=== PATIENT | female | born 1950 | race Caucasian/White ===

== ENCOUNTER 2020-10-28 04:26 | Emergency (ER) | payer MEDICARE, SELFPAY ==
--- NOTE | ~2020-10-28 | CT_ITS ---
EXAMINATION: CT brain wo con DATE: 10/28/2020 06:04 INDICATION: Headache TECHNIQUE: Computed tomography (CT) of the head was performed without intravenous contrast. The mA wa s adjusted according to patient size. Iterative reconstruction technique was employed. Exam dose: 60 5.33 mGy-cm total exam DLP. COMPARISON: None FINDINGS: Bilateral carotid siphon internal carotid artery calcifications and calcification of the do minant left vertebral artery. There is nonspecific diminished attenuation of the cerebral white matte r, likely due to chronic small vessel ischemic changes. No intracranial mass lesion or hemorrhage or cerebrovascular accident is evident. No midline shift or mass effect. No subdural or epidural hematoma. No fracture or bone destruction of the cranial vault. Included mastoid air cells and paranasal sinuses are normally developed and aerated. IMPRESSION: Cerebral atherosclerosis and chronic small vessel ischemic changes of the cerebral white matter No acute intracranial finding Reviewed, dictated and finalized at [facility]. Reviewed, dictated and finalized at location A. LEAD DEVELOPER
--- NOTE | ~2020-10-28 | XR_ITS ---
XR chest 1V DATE: 10/28/2020 06:07 INDICATION: Cough TECHNIQUE: AP chest on 10/28/2020 at 0603 hours COMPARISON: 08/01/2004 AP chest FINDINGS: Cardiomegaly. Aortic tortuosity and ectasia. There is right lung volume loss and rightward shift of the heart mediastinum. There is patchy infiltrate in the right mid to upper lung and infiltrate or atelectasis in both lung bases. No pleural effusion or pulmonary vascular congestion or pneumothorax. Mild left apical capping. Prominent thoracic and lumbar scoliosis. Diffuse osteopenia. IMPRESSION: Patchy right mid-upper lung infiltrate and bibasilar mild infiltrate or atelectasis Cardiomegaly Reviewed, dictated and finalized at location A. K TOP RAKER IMPRESSION: Patchy right mid-upper lung infiltrate and bibasilar mild infiltrat e or atelectasis Cardiomegaly
[2020-10-28 04:56] VITALS: BP 116/97; PULSE 93; RESP 28; TEMP 36.4; O2SAT 91
[2020-10-28 05:03] VITALS: BP 135/82; PULSE 81; PULSE 92; RESP 23; O2SAT 91
[2020-10-28 05:52] LABS: Basophils Percent Auto 0.6 % (0.2-1.2); Eosinophils Absolute Auto 0.1 K/mm3 (0-0.3); Eosinophils Percent Auto 1.5 % (0-4.4); Hematocrit 38.4 % (37.0-47.0); Hemoglobin 12.5 g/dL (12.0-15.0); Immature Granulocyte Percent A 1.5 % (0-0.5); Lymphocytes Percent Auto 13.5 % (18.3-44.2); Mean Corpuscular HGB Conc 32.6 g/dl (32-36); Mean Corpuscular Hemoglobin 26.9 pg (26-34); Mean Corpuscular Volume 82.8 fl (80-100); Mean Platelet Volume 10.4 fl (7.4-10.4); Monocytes Absolute Auto 0.8 K/mm3 (0.1-0.6); Monocytes Percent Auto 11.2 % (2.6-8.5); Neutrophils Absolute Auto 4.8 K/mm3 (1.3-6.7); Neutrophils Percent Auto 71.7 % (45.5-73.1); Platelet Count Result 484 k/mm3 (150-375); Red Blood Count 4.64 M/mm3 (4.2-5.4); Red Cell Distribution Width 15.9 % (11.5-14.5); White Blood Count 6.7 K/mm3 (4.5-10.0)
[2020-10-28 06:05] LABS: Alanine Aminotransferase 17 U/L (4-35); Albumin Level 3.7 g/dL (3.5-5.1); Alkaline Phosphatase 74 U/L (38-126); Anion Gap 12 mmol/L (8-16); Aspartate Amino Transferase 39 U/L (14-36); Bilirubin,Total 0.8 mg/dL (0.2-1.3); Blood Urea Nitrogen 5 mg/dL (7-17); Calcium 8.8 mg/dL (8.4-10.2); Carbon Dioxide 29 mmol/L (22-30); Chloride 98 mmol/L (98-107); Estimated CRCL calculation 80 ml/min; Estimated Glomerular Filt Rate > 60; Glucose 94 mg/dL (65-105); Sodium 139 mmol/L (137-145)
[2020-10-28] MEDS: ONDANSETRON INJ 4 MG/2 ML VIAL IV PUSH (06:16)
[2020-10-28] MEDS: SODIUM CHLORIDE 0.9% IV 500 ML 999 ML IV CONT (06:16)
--- NOTE | 2020-10-28 06:34 | ED.GENADULT ---
HPI - General Adult General Chief complaint: Unspecified Stated complaint: low O2 level, fall head injury Time Seen by Provider: 10/28/20 05:30 History of Present Illness HPI narrative: Patient is a 70-year-old female who presents to emergency department with chief complaint of generalized malaise. The patient reports 2 weeks ago she tested positive for COVID-19 patient reports that she has had decreased appetite has had a cough body aches. The patient reports that with a home pulse oximeter she is read low blood oxygen levels. Patient states that she called her primary care physician to ask for some different nausea medications and also states that she had been coughing and her primary doctor told her to come to the emergency department for a chest x-ray. Patient reports her symptoms are not improved by anything Related Data Home Medications Medication Instructions Recorded Confirmed alprazolam 10/28/20 carvedilol 10/28/20 cyclobenzaprine mg 10/28/20 duloxetine mg PO 10/28/20 esomeprazole magnesium mg 10/28/20 furosemide 10/28/20 hydrocodone-acetaminophen 10/28/20 sumatriptan succinate mg PO 10/28/20 tramadol mg 10/28/20 Allergies Allergy/AdvReac Type Severity Reaction Status Date / Time meperidine Allergy Unknown Nausea and Verified 10/28/20 05:36 Vomiting Review of Systems Review of Systems: Narrative: CONSTITUTIONAL: Denies fever, chills, or sweats. EYES: Denies visual changes, redness, or discharge. ENT: Denies rhinorrhea, congestion, sore throat, or otalgia. CARDIOVASCULAR: Denies chest pain, palpitations, or edema. RESPIRATORY: Denies cough or dyspnea. GASTROINTESTINAL: Denies abdominal pain, nausea, vomiting, or diarrhea. GENITOURINARY: Denies dysuria or hematuria. SKIN: Denies rash or itching. MUSCULOSKELETAL: Denies back pain, joint pain, or myalgia. NEUROLOGIC: Denies headache, numbness, or weakness. PSYCHIATRIC: Denies anxiety or depression. A 10 system review of systems was completed on the patient and is negative except for what is stated in the HPI. Nursing and ancillary documentation was reviewed. [facility] Social History Social History Gender identity (if verbalized by the patient): Female Sexual Orientation (if Verbalized by the Patient): Straight or Heterosexual Comments COVID-19 Patient lives at home with her family denies illicit drug use Exam Narrative: Exam Narrative: GENERAL: Well-appearing, well-nourished, and in no acute distress. HEAD: Normocephalic, atraumatic. EYES: PERRLA and EOMI. ENT: Nares clear, no rhinorrhea or epistaxis. Mucous membranes moist. NECK: Supple. CHEST: Clear to auscultation. No respiratory distress. HEART: Regular rate and rhythm. No murmur heard. Normal peripheral pulses. ABDOMEN: Soft, nontender, nondistended, normal active bowel sounds. EXTREMITIES: Normal range of motion. No edema. SKIN: Warm, dry, no rash. NEURO: No focal deficits. Alert and oriented x3. PSYCH: Normal mood and affect. Course Vital Signs Vital signs: Vital Signs Temperature 36.4 C L 10/28/20 04:56 Pulse Rate 93 10/28/20 04:56 Respiratory Rate 28 H 10/28/20 04:56 Blood Pressure 116/97 H 10/28/20 04:56 Pulse Oximetry 91 10/28/20 04:56 Temperature 36.4 C L 10/28/20 04:56 Pulse Rate 92 10/28/20 05:03 Respiratory Rate 23 H 10/28/20 05:03 Blood Pressure 135/82 10/28/20 05:03 Pulse Oximetry 91 10/28/20 05:03 Medical Decision Making Vital Signs Vital Signs: Vital Signs Temperature 36.4 C L 10/28/20 04:56 Pulse Rate 93 10/28/20 04:56 Respiratory Rate 28 H 10/28/20 04:56 Blood Pressure 116/97 H 10/28/20 04:56 Pulse Oximetry 91 10/28/20 04:56 Temperature 36.4 C L 10/28/20 04:56 Pulse Rate 92 10/28/20 05:03 Respiratory Rate 23 H 10/28/20 05:03 Blood Pressure 135/82 10/28/20 05:03 Pulse Oximetry 91 10/28/20 05:03 Lab Data Result diagrams: 10/28/20 05:36 10/28/20 05:36
[2020-10-28] MEDS: AZITHROMYCIN 250 MG TABLET 500 MG PO (07:28)
[2020-10-28] MEDS: CEFDINIR 300 MG CAPSULE PO (07:28)
[2020-10-28 07:46] VITALS: BP 124/80; PULSE 81; RESP 20; O2SAT 94
== END 2020-10-28 07:54 | disposition home or self-care (01) ==
PROVIDERS: Emergency Provider Emergency Medicine; PCP Internal Medicine
DX: U07.1 COVID-19 (principal); J12.89 Other viral pneumonia
CPT/HCPCS: 36415; 70450; 71045; 80053; 85025; 96361; 96374; 99284; A9270; J2405; J7040

== ENCOUNTER 2020-11-16 18:10 | Outpatient (CLI) | payer MEDICARE, SELFPAY ==
--- NOTE | ~2020-11-16 | XR_ITS ---
EXAMINATION: XR chest 2V EXAM DATE: 11/16/2020 18:44 INDICATION: Cough, states she can't exclude shunt. TECHNIQUE: Frontal and lateral projections of the chest obtained and reviewed. Comparison is made to prior examination from 10/28/2020. FINDINGS: Resolution of previously seen patchy right-sided predominant airspace disease, edema or pne umonia. No confluent consolidation, pneumothorax or pleural effusion suspected. There is moderate tho racolumbar scoliosis. IMPRESSION: Resolution of previously seen acute airspace disease. Reviewed, dictated and finalized at location A. OUT MAN
== END 2020-11-16 18:11 | disposition home or self-care (01) ==
PROVIDERS: PCP Internal Medicine; Visit Provider Internal Medicine
DX: R05 Cough (principal)
CPT/HCPCS: 71046

== ENCOUNTER 2020-11-30 17:45 | Outpatient (CLI) | payer MEDICARE, SELFPAY ==
--- NOTE | ~2020-11-30 | XR_ITS ---
EXAMINATION: XR chest 2V DATE: 11/30/2020 18:23 INDICATION: Persistent cough, shortness of breath TECHNIQUE: PA and lateral views of the chest are obtained. COMPARISON: 11/16/2020 FINDINGS: The lungs are hyperinflated but free of acute opacities. There is no pleural effusion or pn eumothorax. The cardiomediastinal silhouette is normal. There is moderate thoracic spondylosis and th oracolumbar levoscoliosis. IMPRESSION: 1. No acute cardiopulmonary abnormality. Reviewed, dictated and finalized at location A. ENFORCEMENT SUPERVISOR
== END 2020-11-30 17:46 | disposition home or self-care (01) ==
PROVIDERS: PCP Internal Medicine; Visit Provider Internal Medicine
DX: R05 Cough (principal); R06.02 Shortness of breath; J18.9 Pneumonia, unspecified organism
CPT/HCPCS: 71046

== ENCOUNTER 2022-07-07 14:25 | Outpatient (CLI) | payer MEDICARE, SELFPAY ==
--- NOTE | ~2022-07-07 | XR_ITS ---
EXAMINATION: XR chest 2V Exam Date/Time: 07/07/2022 14:45 CDT HISTORY: COUGH, UNSPECIFIED X 1WK Comparison: 11/30/2020. RESULT: Lines, tubes, and devices: None. Lungs and pleura: Clear. Senescent and likely emphysematous change. Cardiomediastinal silhouette: Stable. Other: No acute osseous or upper abdominal finding. IMPRESSION: No acute cardiopulmonary process. Reviewed, dictated and finalized at location K.
== END 2022-07-07 14:26 | disposition home or self-care (01) ==
PROVIDERS: PCP Internal Medicine; Visit Provider Internal Medicine
DX: R05.9 Cough, unspecified (principal)
CPT/HCPCS: 71046

== ENCOUNTER 2023-07-16 12:55 | Observation (INO) | payer MEDICARE, OTHER, SELFPAY ==
[2023-07-16] VITALS (20 sets, daily range): BP systolic 86–134; BP diastolic 53–91; PULSE 76–94; RESP 9–24; TEMP 36.2–36.5; O2SAT 93–100; BMI 29.4
--- NOTE | ~2023-07-16 | XR_ITS ---
EXAMINATION: XR chest 1V portable INDICATION: Right-sided chest pain TECHNIQUE: Portable AP chest at 1315 hours COMPARISON: 07/07/2022 FINDINGS: The lungs are free of acute opacities. No pleural effusion or pneumothorax. The cardiomedia stinal silhouette is normal. IMPRESSION: 1. No acute cardiopulmonary abnormality. Reviewed, dictated and finalized at location L.
--- NOTE | ~2023-07-16 | US_ITS ---
EXAMINATION: US venous doppler [facility] DATE: 07/17/2023 09:50 INDICATION: Bilateral lower limb swelling TECHNIQUE: Escobar scale images without and with compression and Doppler images of the bilateral lower e xtremity veins were obtained. COMPARISON: None FINDINGS: The right common femoral vein, profunda femoral vein, femoral vein, popliteal vein, peroneal trunk, p osterior tibial veins, and greater saphenous vein are patent. The left common femoral vein, profunda femoral vein, femoral vein, popliteal vein, peroneal trunk, po sterior tibial veins, and greater saphenous vein are patent. IMPRESSION: 1. Patent bilateral lower extremity veins. No evidence of deep venous thrombosis. Reviewed, dictated and finalized at location B. IMPRESSION: 1. Patent bilateral lower extremity veins. No evidence of deep venous thrombosi s.
--- NOTE | ~2023-07-16 | CT_ITS ---
EXAMINATION: CTA chest PE protocol DATE: 07/16/2023 15:01 INDICATION: Central pleuritic chest pain TECHNIQUE: Computed tomography (CT) pulmonary angiogram of the chest was performed with 100 mL Omnipa que-350 intravenous contrast. Additional 3D reconstructions utilizing coronal maximum intensity proje ction (MIP) were performed. Automated exposure control and iterative reconstruction technique were em ployed. The dose-length product was 253.41 mGy-cm. COMPARISON: None FINDINGS: Excellent contrast opacification of the pulmonary arteries. There is moderate streak artifact from de nse contrast in the superior vena cava and right atrium. Minimal scattered respiratory motion artifac t which is not significant evaluation. No pulmonary embolism. Mild emphysema. Mild dependent atelecta sis in the bilateral lower lobes. Additional mild discoid atelectasis at the right middle lobe. Very small bilateral posterior layering pleural effusions. No pneumonia, pulmonary edema or pneumothorax. Cardiomegaly with right ventricular and right atrial enlargement. No pericardial effusion. Thoracic a emmanuelle is normal in caliber with no dissection. No pathologically enlarged thoracic lymphadenopathy. 3. 1 x 2.3 x 2.3 cm likely fluid collection at the lateral left breast which appears underlying surgical scar suggesting postoperative seroma post left breast excisional biopsy. Mild elevation of the left hemidiaphragm. 9 mm cyst at the dome of the liver. Prominent left extrarenal pelvis. 30 degree thorac ic dextroscoliosis with moderate spondylosis. IMPRESSION: 1. No pulmonary embolism. 2. Mild emphysema with very small bilateral pleural effusions and scattered mild atelectasis in both lungs. 3. Cardiomegaly with right heart predominance. 4. 3.1 x 2.3 x 2.3 cm likely seroma related to prior excisional biopsy of the left breast. Correlate with surgical history. Reviewed, dictated and finalized at location A. IMPRESSION: 1. No pulmonary embolism. 2. Mild emphysema with very small bilateral pleural effusions and scattered mil d atelectasis in both lungs. 3. Cardiomegaly with right heart predominance. 4. 3.1 x 2.3 x 2.3 cm likely seroma related to prior excisional biopsy of the l eft breast. Correlate with surgical history.
--- NOTE | 2023-07-16 13:01 | ECG_ITS ---
Measurements Intervals [place] Rate: 82 P: -1 MD: 116 QRS: -5 QRSD: 81 T: 34 QT: 348 QTc: 407 Interpretive Statements SINUS RHYTHM WITH SHORT MD INTERVAL LOW QRS VOLTAGE IN PRECORDIAL LEADS [QRS DEFLECTION < 1.0 mV IN CHEST LEADS] NO PREVIOUS ECG AVAILABLE FOR COMPARISON Electronically Signed On 07-16-2023 14:41:58 CDT by Bell Rand M.D.
--- NOTE | 2023-07-16 13:24 | ED.GENADULT ---
HPI - General Adult General Chief complaint: Chest Pain <Ricky Arora PA-C - Last Filed: 07/16/23 19:33> Stated complaint: real bad chest pains <Ricky Arora PA-C - Last Filed: 07/16/23 19:33> Time Seen by Provider: 07/16/23 13:06 <Ricky Arora PA-C - Last Filed: 07/16/23 19:33> Source: patient <Ricky Arora PA-C - Last Filed: 07/16/23 19:33> Mode of arrival: ambulatory <Ricky Arora PA-C - Last Filed: 07/16/23 19:33> Limitations: no limitations <Ricky Arora PA-C - Last Filed: 07/16/23 19:33> History of Present Illness HPI narrative: This is a 73-year-old female who presents to the ED with chief complaint of chest pain beginning around 0 930 this morning. She reports it is primarily in the left side of the chest but has since diffusely spread. She reports it also radiates to the back. She states it is worse with deep breathing. Patient also notes that she has had recent radiation treatments for breast cancer (5 in total). She is not on chemotherapy currently. She reports the chest pain is worsened with exertion but also seems to be worsened in certain positions. She also notes that she has had some increased leg swelling bilaterally over the past 3 days. She states her legs have been chronically swollen and she takes a water pill for this. Patient states that she has had multiple blood clots in the past but is not currently on any blood thinners. Denies LOC, vomiting. Denies dyspnea, fevers, chills, abdominal pain, palpitations. <Ricky Arora PA-C - Last Filed: 07/16/23 19:33> Related Data Home medications: Home Medications Medication Instructions Recorded Confirmed alprazolam 0.5 mg tablet 0.5 mg PO HS 10/28/20 07/16/23 carvedilol 12.5 mg tablet 12.5 mg PO DAILY 10/28/20 07/16/23 duloxetine 30 mg capsule,delayed 30 mg PO DAILY 10/28/20 07/16/23 release esomeprazole magnesium 40 mg 40 mg PO DAILY 10/28/20 07/16/23 capsule,delayed release sumatriptan succinate 100 mg tablet 100 mg PO DAILY PRN Migraine 10/28/20 07/16/23 Headache Shanice-D 24 Hour 1 pill BYMOUTH DAILY 07/16/23 07/16/23 albuterol sulfate 90 mcg/actuation 2 puff inhalation Q6H PRN 07/16/23 07/16/23 aerosol inhaler (Ventolin HFA) Shortness Of Breath dextromethorphan-guaifenesin 30 1 tablet PO Q12H PRN Cough 07/16/23 07/16/23 mg-600 mg tablet extended [id number] hr (Mucinex DM) fluticasone propionate 50 1 spray intranasal DAILY 07/16/23 07/16/23 mcg/actuation nasal spray,suspension furosemide 40 mg tablet 40 mg PO DAILY 07/16/23 07/16/23 methocarbamol 750 mg tablet 750 mg PO TID 07/16/23 07/16/23 pregabalin 75 mg capsule 75 mg PO HS 07/16/23 07/16/23 <Ricky Arora PA-C - Last Filed: 07/16/23 19:33> Allergies/adverse reactions: Allergies Allergy/AdvReac Type Severity Reaction Status Date / Time meperidine Allergy Unknown Nausea and Verified 10/28/20 05:36 Vomiting <Ricky Arora PA-C - Last Filed: 07/16/23 19:33> Review of Systems Review of Systems: All systems as dictated in HPI <Ricky Arora PA-C - Last Filed: 07/16/23 19:33> [facility] Past Medical History Medical History: Medical History Arthritis Cancer of left breast Depression with anxiety Hypertension Left leg DVT (01/2023) <KENZIE Farmer Last Filed: 07/16/23 19:33> Surgical History Surgical History: Surgical History History of cholecystectomy History of laparoscopy For endometriosis. History of lumpectomy of left breast History of vein stripping <Ricky Arora PA-C - Last Filed: 07/16/23 19:33> Family History Family History: Family History Other Heart disease <Ricky Arora PA-C - Last Filed: 07/16/23 19:33> Social History Social History: Social History (Reviewed 07/17/23
[2023-07-16 13:49] LABS: Basophils Absolute Auto 0.1 K/mm3 (0.0-0.1); Basophils Percent Auto 0.7 % (0.2-1.2); Eosinophils Absolute Auto 0.1 K/mm3 (0-0.3); Hematocrit 33.9 % (37.0-47.0); Hemoglobin 10.3 g/dL (12.0-15.0); Immature Granulocyte Absolute 0.05 K/mm3 (0.00-0.031); Immature Granulocyte Percent A 0.5 % (0-0.5); Lymphocytes Absolute Auto 0.72 K/mm3 (0.9-3.2); Lymphocytes Percent Auto 7.3 % (18.3-44.2); Mean Corpuscular HGB Conc 30.4 g/dl (32-36); Mean Corpuscular Hemoglobin 28.5 pg (26-34); Mean Corpuscular Volume 93.9 fl (80-100); Mean Platelet Volume 10.8 fl (7.4-10.4); Monocytes Absolute Auto 1.1 K/mm3 (0.1-0.6); Monocytes Percent Auto 10.8 % (2.6-8.5); Neutrophils Absolute Auto 7.9 K/mm3 (1.3-6.7); Neutrophils Percent Auto 79.7 % (45.5-73.1); Platelet Count Result 246 k/mm3 (150-375); Red Blood Count 3.61 M/mm3 (4.2-5.4); Red Cell Distribution Width 13.7 % (11.5-14.5); White Blood Count 9.9 K/mm3 (4.5-10.0)
[2023-07-16 13:59] LABS: Alanine Aminotransferase 15 U/L (6-35); Albumin Level 3.4 g/dL (3.5-5.1); Alkaline Phosphatase 48 U/L (38-126); Anion Gap 1 mmol/L (8-16); Aspartate Amino Transferase 31 U/L (14-36); Bilirubin,Total 0.4 mg/dL (0.2-1.3); Blood Urea Nitrogen 12 mg/dL (7-17); Calcium 8.7 mg/dL (8.4-10.2); Carbon Dioxide 35 mmol/L (22-30); Chloride 100 mmol/L (98-107); Estimated CRCL calculation 72 ml/min; Estimated Glomerular Filt Rate > 60; Glucose 79 mg/dL (65-110); INR 0.9; Lipase 118 U/L (23-300); Partial Thromboplastin Time 22.2 SECONDS (22.3-36.8); Potassium 3.1 mmol/L (3.4-5.0); Prothrombin Time 12.8 Seconds (11.1-14.7); Sodium 136 mmol/L (137-145)
[2023-07-16] MEDS: MORPHINE SULFATE (*CRX) 4 MG/ML INJ 2 MG IV PUSH (14:07)
[2023-07-16] MEDS: ONDANSETRON INJ 4 MG/2 ML VIAL IV PUSH (14:08)
[2023-07-16 14:10] LABS: NT Pro B Type Natriuretic Pept 584 pg/mL (19.9-100); Troponin I < 0.012 ng/mL (0.000-0.034)
[2023-07-16 16:11] LABS: Troponin I < 0.012 ng/mL (0.000-0.034)
[2023-07-16] MEDS: MORPHINE SULFATE (*CRX) 2 MG/ML INJ IV PUSH (18:26)
[2023-07-16 19:17] LABS: Troponin I < 0.012 ng/mL (0.000-0.034)
[2023-07-16] MEDS: KETOROLAC 15 MG/ML VIAL (*BKC) IV PUSH (19:56)
--- NOTE | 2023-07-16 21:28 | PC.NURSE ---
Sylvia JEONG notified of blood pressure. Give NS 500ml x1 over 1 hour.
[2023-07-16] MEDS: SODIUM CHLORIDE 0.9% IV 500 ML IV CONT (21:45)
--- NOTE | 2023-07-16 21:49 | ADMGEN ---
This patient, Lucie Kenyon, was admitted to IMU Room 213-01. Patient/family oriented to hospital policies and general routines including ID bracelet, bed and alarms, visiting hours, pain management, procedures, bathroom and other care routines, personal items, smoking policy, room service/diet, and visiting hours. Information on how to activate the Rapid Response Team has been discussed. Patient/Family are encouraged to report perceived risks to care and to ask questions if they do not understand what they are told or what they should do.
--- NOTE | 2023-07-16 21:50 | PM.IMHP ---
H&P: HPI History of Present Illness Date/Time: 07/16/23 19:15 Chief Complaint: Chest pain. Narrative: This is a pleasant 73-year-old female who recently finished radiation for left-sided breast cancer with hypertension, depression, anxiety, and history of DVT who presented to the emergency department for evaluation of chest pain. The patient provides the following history. She had 5 radiation treatments to her left breast last week and since that time she has had discomfort and swelling in the left breast. This morning however she was experiencing a different pain in her chest upon waking. It is primary left-sided but does extend to the mid chest and will occasionally radiate to the back. She has difficulties describing the pain but is almost like a ?catching? pain. It is worse with deep inspiration, touch, and some positions. Morphine and Toradol received in the ER house helped somewhat. She has also noticed increased lower extremity swelling over the past several days and she has been taking furosemide for this at home. She has occasional sweats which is unusual for her; she has not yet started anti hormone therapy. She denies syncope, near syncope, palpitations, sensations of racing heart, nausea, and vomiting. Initial troponin was negative an EKG did not demonstrate any acute ST segment depressions or elevations. Chest CTA was negative for pulmonary embolism but did note cardiomegaly with right heart predominance and a 3.1 x 2.3 x 2.3 cm likely seroma related to prior excisional biopsy of left breast. I was asked to admit the patient in the setting for close observation and to rule out acute coronary syndrome. She has no known history of cardiac disease but does report a family history of such. Review of Systems Review of Systems: Twelve systems were reviewed and are negative except for as per HPI. [facility] Past Medical History Medical History (Updated 07/16/23 @ 23:40 by Sylvia Lozano PA-C) Arthritis Cancer of left breast Depression with anxiety Hypertension Left leg DVT (01/2023) Surgical History Surgical History (Updated 07/16/23 @ 23:38 by Sylvia Lozano PA-C) History of cholecystectomy History of laparoscopy For endometriosis. History of lumpectomy of left breast History of vein stripping Family History Family History (Updated 07/16/23 @ 23:38 by Sylvia Lozano PA-C) Other Heart disease Social History Social History (Updated 07/16/23 @ 23:38 by Sylvia Lozano PA-C) Social History: Surrogate medical decision maker: Dex Kenyon, spouse. Code status: Full code. Smoking status: Never smoker Alcohol intake: never Substance use: never Lack of Transportation: No Lack of Food: Never True Current Housing: I Have Housing Concerned About Future Housing: No Difficulty Paying Gas/Electric Bills: No Difficulty Paying for Meds: No Currently Unemployed: No Education: Decline to Answer Difficulty w/ Childcare or Family Care: No Additional living arrangements comments: Lives with spouse in [place]. Additional occupation/education comments: Retired. Spiritual care concerns: No Meds Home Medications and Allergies Home Medications Medication Instructions Recorded Confirmed Type alprazolam 0.5 mg tablet 0.5 mg PO HS 10/28/20 07/16/23 History carvedilol 12.5 mg tablet 12.5 mg PO DAILY 10/28/20 07/16/23 History duloxetine 30 mg capsule,delayed 30 mg PO DAILY 10/28/20 07/16/23 History release esomeprazole magnesium 40 mg 40 mg PO DAILY 10/28/20 07/16/23 History capsule,delayed release sumatriptan succinate 100 mg tablet 100 mg PO DAILY PRN Migraine 10/28/20 07/16/23 History Headache Shanice-D 24 Hour 1 pill BYMOUTH DAILY 07/16/23 07/16/23 History albuterol sulfate 90 mcg/actuation 2 puff inhalation Q6H PRN 07/16/23 07/16/23 History aerosol inhaler (Ventolin HFA) Shortness Of Breath dextromethorphan-guaifenesin 30 1 tablet PO Q12H PRN Cough
[2023-07-17] VITALS (11 sets, daily range): BP systolic 94–163; BP diastolic 48–75; PULSE 75–95; RESP 16–20; TEMP 36.1–36.6; O2SAT 90–98
[2023-07-17] MEDS: ALPRAZolam (*CRX) 0.5 MG TABLET PO (00:20)
[2023-07-17] MEDS: PREGABALIN (*CRX) 75 MG CAPSULE PO (00:20)
[2023-07-17] MEDS: ACETAMINOPHEN 325 MG TABLET 650 MG PO ×2 (00:20→06:40)
[2023-07-17] MEDS: SODIUM CHLORIDE 0.9% IV 1,000 ML 100 ML IV CONT (00:21)
[2023-07-17] MEDS: SODIUM CHLORIDE 0.9% IV 500 ML IV CONT (00:21)
[2023-07-17] MEDS: POTASSIUM CHLORIDE 20 MEQ ER TABLET 40 MEQ PO (00:23)
[2023-07-17] MEDS: MAG HYDROX/AL HYDROX/SIMETH 30 ML UDC PO (00:40)
[2023-07-17 00:47] LABS: Iron 76 ug/dL (37-170)
[2023-07-17 00:56] LABS: Percent Iron Saturation 23 % (20-50)
[2023-07-17 03:33] LABS: Hematocrit 28.6 % (37.0-47.0); Hemoglobin 8.9 g/dL (12.0-15.0); Mean Corpuscular HGB Conc 31.1 g/dl (32-36); Mean Corpuscular Hemoglobin 28.9 pg (26-34); Mean Corpuscular Volume 92.9 fl (80-100); Mean Platelet Volume 10.1 fl (7.4-10.4); Platelet Count Result 197 k/mm3 (150-375); Red Blood Count 3.08 M/mm3 (4.2-5.4); Red Cell Distribution Width 13.6 % (11.5-14.5); White Blood Count 7.6 K/mm3 (4.5-10.0)
[2023-07-17 03:49] LABS: Anion Gap 0 mmol/L (8-16); Blood Urea Nitrogen 11 mg/dL (7-17); Calcium 7.7 mg/dL (8.4-10.2); Carbon Dioxide 32 mmol/L (22-30); Chloride 99 mmol/L (98-107); Estimated CRCL calculation 59 ml/min; Estimated Glomerular Filt Rate > 60; Glucose 93 mg/dL (65-110); Magnesium 1.9 mg/dL (1.6-2.3); Potassium 3.1 mmol/L (3.4-5.0); Sodium 131 mmol/L (137-145)
--- NOTE | 2023-07-17 08:00 | ECHO_ITS ---
Patient Info Name: Lucie Kenyon Age: 73 years : 1950 Gender: Female Ht: 63 in Wt: 150 lbs BSA: 1.76 m2 HR: 85 bpm BP: 94 / 48 mmHg Heart Rhythm: Sinus Rhythm Technical Quality: Good Exam Date: 07/17/2023 9:55 AM Exam Location: [facility] Patient Status: Inpatient Admit Date: 07/16/2023 Staff Ordering Physician: Sylvia Lozano PA-C Household Appliance Assembler: Jose Gabriel RDCS Attending Provider: Dania Souza DO Referring Physician: Marta ROE; Exam Type: CA echo doppler color flow Study Info Indications - chest pain /cardiomegaly Complete two-dimensional, color flow and Doppler transthoracic echocardiogram is performed. Summary 1. Complete two-dimensional, color flow and Doppler transthoracic echocardiogram is performed. 2. Technically difficult study. 3. Left ventricular chamber dimension is normal. 4. Left ventricular systolic function is normal, estimated at 65-70%. 5. There is mildly increased left ventricular wall thickness. 6. The left ventricular diastolic function is grade I diastolic dysfunction. 7. There is trace mitral valve regurgitation. 8. There is mild tricuspid valve regurgitation. 9. Mild pulmonary hypertension, estimated pulmonary arterial systolic pressure is 38 mmHg. Left Ventricle Left ventricular chamber dimension is normal. Left ventricular systolic function is normal, estimated at 65-70%. There is mildly increased left ventricular wall thickness. The left ventricular diastolic function is grade I diastolic dysfunction. Technically difficult study. Right Ventricle Right ventricular chamber dimension is normal. Right ventricular systolic function is normal. Left Atria Left atrial chamber dimension is mildly enlarged. Right Atria Right atrial chamber dimension is normal. Aortic Valve The aortic valve is not well visualized. There is no aortic valve stenosis. There is no aortic valve regurgitation. Pulmonic Valve The pulmonic valve is not well visualized. Mitral Valve The mitral valve has normal leaflets. There is trace mitral valve regurgitation. The mitral valve annulus is mildly calcified. Tricuspid Valve The tricuspid valve leaflets are normal. There is mild tricuspid valve regurgitation. Mild pulmonary hypertension, estimated pulmonary arterial systolic pressure is 38 mmHg. Pericardium/Pleural The pericardium appears normal. There is trivial pericardial effusion. Inferior Vena Cava Normal inferior vena cava with <50% collapse upon inspiration consistent with elevated right atrial pressure, 10 mmHg. Aorta The aortic root size at the sinus of Valsalva is normal. Left Ventricular Outflow Tract Name Value Normal LVOT 2D LVOT Diameter 1.9 cm LVOT Doppler LVOT Peak Gradient 6 mmHg LVOT Mean Gradient 3 mmHg LVOT VTI 31 cm LVOT VTI/AV VTI Ratio 0.9 LVOT Stroke Volume 89 ml LVOT CO 6.0 l/min LVOT CI 3.4 l/min/m2 Pulmonic Valve Name
[2023-07-17] MEDS: DULoxetine HCL 30 MG CAPSULE.DR PO (08:31)
[2023-07-17] MEDS: PANTOPRAZOLE 40 MG TABLET PO (08:32)
[2023-07-17] MEDS: LORATADINE/PSEUDOEPHEDRINE (*CRX) 10/240 MG TABLET ER 24 HR 1 TAB PO (08:32)
--- NOTE | 2023-07-17 10:00 | PM.CNCAR ---
Assessment and Plan Assessment and plan (1) Chest pain: Qualifiers: Chest pain type: precordial pain Qualified Code(s): R07.2 - Precordial pain Code(s): R07.9 - Chest pain, unspecified Status: Acute Assessment and Plan: Persistent, pleuritic atypical noncardiac chest pain clinically consistent with musculoskeletal and or inflammatory etiology. She has ruled out for myocardial marked negative serial cardiac enzymes and including acute pulmonary embolism. No evidence for acute infiltrate or pneumonia as explanation. Symptoms most likely secondary to inflammatory changes to the history of breast cancer status post radiation and possibly seroma. Given back she also reports no anginal symptoms in the past with remote stress testing which has been normal, there is no clear indication for ischemic testing at this time. 2D echocardiogram was ordered and personally reviewed. Echocardiogram does not reveal significant for pericardial effusion significant inflammatory changes of the pericardium. LV systolic function is normal with mild concentric left ventricle hypertrophy without focal wall motion abnormalities. No significant valve pathology with minimal elevation pulmonary pressures with RVSP 38mHg. There is no evidence for right-sided chamber enlargement or hypokinesis. Anti-inflammatory therapy per primary service. Monitor renal function and for signs of bleeding. No evidence for clinical diagnosis of pericarditis. At great length we discussed etiology of chest pain, additional contributions and patient's increased risk for thromboembolic phenomena given history DVT, malignancy but does she was ruled out for acute pulmonary embolism and lower extremity venous Dopplers which is highly encouraging. Furthermore, her examination, ECG and negative troponins along with unremarkable pericardium on echocardiogram about suggestive of pericarditis as clinical diagnosis. Nonetheless, anti-inflammatory therapy advised. Her chest pain is most likely secondary to post radiation inflammatory changes which likely can be managed conservatively with anti-inflammatory therapy such as ibuprofen. Consider GI prophylaxis in this regard time particularly given her anemia. All questions answered the patient and her 's satisfaction. We discussed it was highly unlikely her symptoms related to an acute cardiac process given lack of corroborating information and the persistence of her symptoms for greater than 24h highly suggestive of pleuritic inflammatory process. They verbalized understanding and agreed and were comfortable with plan of care. She would like to follow up with me as an outpatient which revealed reasonable in 1 month post discharge to ensure stability and answer any further questions she may have given her concern in general. I reassured her of the findings from her CT with regards of the lack of acute thrombolic events lack of evidence of myocardial infarction and the preservation of her LV systolic function. They were very appreciative and grateful for the time spent my explanations provided. Disposition per hospitalist service. (2) Hypertension: Qualifiers: Hypertension type: primary hypertension Qualified Code(s): I10 - Essential (primary) hypertension Code(s): I10 - Essential (primary) hypertension Status: Acute Assessment and Plan: Patient was relatively hypotensive overnight improved this morning. Check orthostatic vital signs. Hold off on Lasix to avoid worsening hypotension and or orthostasis it may result fall or injury. Encourage oral intake and hydration. Hold carvedilol for the time being which was previously used for control of her hypertension although reportedly carvedilol 12.5 mg once daily was prescribed. (3) Cancer of left breast: Code(s): C50.912 - Malignant neoplasm of unspecified site of left female breast Status: Acute Assessment and Plan: Further
[2023-07-17 10:29] LABS: Basophils Absolute Auto 0.1 K/mm3 (0.0-0.1); Eosinophils Absolute Auto 0.1 K/mm3 (0-0.3); Eosinophils Percent Auto 1.8 % (0-4.4); Hematocrit 29.8 % (37.0-47.0); Hemoglobin 9.1 g/dL (12.0-15.0); Immature Granulocyte Absolute 0.03 K/mm3 (0.00-0.031); Immature Granulocyte Percent A 0.4 % (0-0.5); Lymphocytes Absolute Auto 1.09 K/mm3 (0.9-3.2); Mean Corpuscular HGB Conc 30.5 g/dl (32-36); Mean Corpuscular Hemoglobin 28.5 pg (26-34); Mean Corpuscular Volume 93.4 fl (80-100); Mean Platelet Volume 10.1 fl (7.4-10.4); Monocytes Absolute Auto 1.1 K/mm3 (0.1-0.6); Monocytes Percent Auto 15.6 % (2.6-8.5); Neutrophils Absolute Auto 4.4 K/mm3 (1.3-6.7); Neutrophils Percent Auto 65.2 % (45.5-73.1); Platelet Count Result 188 k/mm3 (150-375); Red Blood Count 3.19 M/mm3 (4.2-5.4); Red Cell Distribution Width 13.6 % (11.5-14.5); White Blood Count 6.8 K/mm3 (4.5-10.0)
[2023-07-17 10:38] LABS: Alanine Aminotransferase 28 U/L (6-35); Albumin Level 3.1 g/dL (3.5-5.1); Alkaline Phosphatase 49 U/L (38-126); Anion Gap 1 mmol/L (8-16); Aspartate Amino Transferase 43 U/L (14-36); Bilirubin,Total 0.5 mg/dL (0.2-1.3); Blood Urea Nitrogen 12 mg/dL (7-17); Calcium 7.9 mg/dL (8.4-10.2); Carbon Dioxide 35 mmol/L (22-30); Chloride 100 mmol/L (98-107); Estimated CRCL calculation 59 ml/min; Estimated Glomerular Filt Rate > 60; Glucose 77 mg/dL (65-110); Potassium 3.6 mmol/L (3.4-5.0); Sodium 136 mmol/L (137-145)
[2023-07-17] MEDS: ALBUMIN HUMAN 25% 25 GM/100 ML 100 ML IVPB (11:26)
--- NOTE | 2023-07-17 13:52 | PM.DS ---
DS: Admitting Diagnosis Discharge Date 07/17/23 Admitting Diagnosis chest pain DS: Discharge Diagnosis Discharge Diagnosis (1) Chest pain: Qualifiers: Chest pain type: precordial pain Qualified Code(s): R07.2 - Precordial pain Code(s): R07.9 - Chest pain, unspecified Status: Acute (2) Cardiomegaly: Code(s): I51.7 - Cardiomegaly Status: Acute (3) Normocytic anemia: Code(s): D64.9 - Anemia, unspecified Status: Acute (4) Mild dehydration: Code(s): E86.0 - Dehydration Status: Acute (5) Hypokalemia: Code(s): E87.6 - Hypokalemia Status: Acute (6) Lower extremity edema: Code(s): R60.0 - Localized edema Status: Acute (7) Cancer of left breast: Code(s): C50.912 - Malignant neoplasm of unspecified site of left female breast Status: Acute (8) Hypertension: Qualifiers: Hypertension type: primary hypertension Qualified Code(s): I10 - Essential (primary) hypertension Code(s): I10 - Essential (primary) hypertension Status: Acute DS: Summary Hospital Course Hospital Course: This is a 73-year-old female who recently finished radiation for left-sided breast cancer. She has a past medical history of hypertension, depression, anxiety and history of DVT the presents to the ED for evaluation of chest pain on 07/16/2023. Patient had 5 radiation treatments of her left breast last Saturday and approximately 4 days after she started experiencing left-sided chest pain with an occasional radiation to the back and described it as a stabbing pressure-like pain that was worse with touch, deep inspiration and change of position. She received morphine and Toradol in the ED that did seem to help her pain. She does have lower extremity swelling but her primary care provider is aware of this and she has been taking furosemide for this at home. EKG did not demonstrate any ST depressions or elevations. CTA of chest negative for pulmonary embolism. Patient was admitted for workup of acute coronary syndrome and Cardiology was consulted. Patient's troponins negative x3. Echocardiogram was unremarkable. Cardiology consulted on patient and recommended follow-up with them in approximately 1 month. Patient stated that she has been having an intermittent dizziness with changes of position and moving her head from side to side that has been present for approximately 1 week. Orthostatics performed and were negative. The gave patient some meclizine for benign positional vertigo. Some of her symptoms could also been related to her recent radiation. Patient's chest pain is likely due to radiation therapy as well. Advised patient to take anti inflammatories for her chest wall tenderness. Patient's labs and vital signs are stable and she is medically clear for discharge. Time Spent with Patient Time attestation: Total time spent providing and/or coordinating discharge services: Exam Narrative: GENERAL: Comfortable, no acute distress HENMT: moist mucous membranes EYES: EOM intact b/l NECK: no lymphadenopathy RESPIRATORY: clear to auscultation CARDIO: RRR, tender to palpation over left breast GI: soft, nontender, bowel sounds present SKIN: no rashes EXTREMITIES: 2+ pedal edema, no redness or tenderness DS: Data Data Completed and Pending Labs on day of discharge: Labs from last 24 hours 07/17/23 07/17/23 07/16/23 10:22 03:27 23:56 WBC 6.8 7.6 RBC 3.19 L 3.08 L Hgb 9.1 L 8.9 L Hct 29.8 L 28.6 L MCV 93.4 92.9 MCH 28.5 28.9 MCHC 30.5 L 31.1 L RDW 13.6 13.6 Plt Count 188 197 MPV 10.1 10.1 Immature Gran % (Auto) 0.4 Neut % (Auto) 65.2 Lymph % (Auto) 16.0 L [place] % (Auto) 15.6 H Eos % (Auto) 1.8 Baso % (Auto) 1.0 Lymph # (Auto) 1.09 [place] # (Auto) 1.1 H Eos # (Auto) 0.1 Baso # (Auto) 0.1 Abs Immat Gran (auto) 0.03 Absolute Neuts (auto) 4.4 Absolute
== END 2023-07-17 16:00 | disposition home or self-care (01) ==
LOC: ANHED 14:51 → ANHIMU 21:18
PROVIDERS: Emergency Medicine; Internal Medicine Critical Care Medicine; Physician Assistant; Admitting Provider Student in an Organized Health Care Education/Training Program; Emergency Provider Physician Assistant; PCP Internal Medicine; Visit Provider Internal Medicine
DX: R07.2 Precordial pain (principal); M54.9 Dorsalgia, unspecified; C50.912 Malignant neoplasm of unspecified site of left female breast; R60.0 Localized edema; F41.8 Other specified anxiety disorders; I11.9 Hypertensive heart disease without heart failure; D64.9 Anemia, unspecified; E87.6 Hypokalemia; E86.0 Dehydration; R06.02 Shortness of breath; I08.1 Rheumatic disorders of both mitral and tricuspid valves; I45.6 Pre-excitation syndrome; Z82.49 Family history of ischemic heart disease and other diseases of the circulatory system; Z86.718 Personal history of other venous thrombosis and embolism; Z79.60 Long term (current) use of unspecified immunomodulators and immunosuppressants; Z79.51 Long term (current) use of inhaled steroids; Z79.899 Other long term (current) drug therapy; R91.8 Other nonspecific abnormal finding of lung field; Z92.3 Personal history of irradiation
CPT/HCPCS: 36415; 71045; 71275; 80048; 80053; 82607; 82728; 82746; 83540; 83550; 83690; 83735; 83880; 84443; 84484; 85025; 85027; 85610; 85730; 93005; 93306; 93970; 96365; 96366; 96374; 96375; 96376; 99284; A9270; G0378; J1885; J2270; J2405; J7030; J7040; P9047; Q9967

== ENCOUNTER 2023-12-06 00:14 | Emergency (ER) | payer MEDICARE, OTHER, SELFPAY ==
[2023-12-06] VITALS (13 sets, daily range): BP systolic 130–159; BP diastolic 84–99; PULSE 67–81; RESP 14–20; TEMP 36.8; O2SAT 96–100
--- NOTE | ~2023-12-06 | XR_ITS ---
Portable chest x-ray Comparison: 07/16/2023 Clinical History: Leg edema Findings: Lungs are clear, without focal consolidation or pleural effusion. Cardiomediastinal silho uette is stable. Bones and soft tissues are unremarkable. Impression: Clear lungs. Reviewed, dictated and finalized at [facility]. [employer]UMENT MAKER AND REPAIRER Impression: Clear lungs.
--- NOTE | 2023-12-06 03:27 | PC.NURSE ---
Patient states she was prescribed Keflex 500 mg bid for 10 days to treat the cellulitis in her lower legs. States the wounds were better until last night when she had a large weeping blister appear on the left lower leg and two open wounds on her right leg that were previously scabbed over. Swelling to both lower legs noted, no redness.
--- NOTE | 2023-12-06 04:34 | ECG_ITS ---
Measurements Intervals [place] Rate: 67 P: 36 AL: 177 QRS: -9 QRSD: 76 T: 26 QT: 393 QTc: 416 Interpretive Statements SINUS RHYTHM VOLTAGE CRITERIA FOR LVH BASELINE ARTIFACT- II, III, V3 BORDERLINE ECG COMPARED TO ECG 07/16/2023 13:07:32 NO SIGNIFICANT CHANGES Electronically Signed On 12-06-2023 6:46:24 BODYBUILDER by Rafy Purdy D.O.
--- NOTE | 2023-12-06 04:37 | ED.EXTPRO ---
HPI - Extremity Problem General Chief complaint: Extremity Problem,Nontraumatic Stated complaint: leg swelling Time Seen by Provider: 12/06/23 04:18 Source: patient and family () Limitations: no limitations History of Present Illness HPI Narrative: Patient is a 73-year-old female presents to the emergency department complaining of bilateral lower extremity swelling. Patient states this willing has been present since the summertime in his bed progressively getting worse. Patient states that she went to urgent care on the 23 of November and was started on antibiotics for what was perceived to be an infection and the wounds on her right leg has since been improving however they have not completely gone away. Patient admits to a history of being on a diuretic that did not help. Patient does not know what causes her leg swelling. Patient denies history of blood clots or unilateral worsening of the swelling. Patient denies chest pain, shortness of breath, lightheadedness, fever, diarrhea, dysuria, history of kidney disease, history of liver disease, nausea, vomiting, numbness, weakness, recent injuries. Patient denies elevating her legs or wearing compression stockings. Patient denies history of heart failure. Patient admits to history of varicose veins. Patient notes that she has not followed up with the primary care physician yet about this. Patient has pictures of the wounds on her right leg for comparison to the initial onset when she went to urgent care. Patient was told by urgent care to keep the wound covered and continue to apply Aquaphor to help with healing and she has overall been keeping the wounds moist, denies spreading redness, denies discharge, denies new or concerning pain or foul-smelling drainage. Related Data Home Medications Medication Instructions Recorded Confirmed alprazolam 0.5 mg tablet 0.5 mg PO HS 10/28/20 07/16/23 carvedilol 12.5 mg tablet 12.5 mg PO DAILY 10/28/20 07/16/23 duloxetine 30 mg capsule,delayed 30 mg PO DAILY 10/28/20 07/16/23 release esomeprazole magnesium 40 mg 40 mg PO DAILY 10/28/20 07/16/23 capsule,delayed release sumatriptan succinate 100 mg tablet 100 mg PO DAILY PRN Migraine 10/28/20 07/16/23 Headache Shanice-D 24 Hour 1 pill BYMOUTH DAILY 07/16/23 07/16/23 albuterol sulfate 90 mcg/actuation 2 puff inhalation Q6H PRN 07/16/23 07/16/23 aerosol inhaler (Ventolin HFA) Shortness Of Breath dextromethorphan-guaifenesin 30 1 tablet PO Q12H PRN Cough 07/16/23 07/16/23 mg-600 mg tablet extended [id number] hr (Mucinex DM) fluticasone propionate 50 1 spray intranasal DAILY 07/16/23 07/16/23 mcg/actuation nasal spray,suspension furosemide 40 mg tablet 40 mg PO DAILY 07/16/23 07/16/23 methocarbamol 750 mg tablet 750 mg PO TID 07/16/23 07/16/23 pregabalin 75 mg capsule 75 mg PO HS 07/16/23 07/16/23 Allergies Allergy/AdvReac Type Severity Reaction Status Date / Time meperidine Allergy Unknown Nausea and Verified 10/28/20 05:36 Vomiting Review of Systems Review of Systems: A 10 system review of systems was completed on the patient and is negative except for what is stated in the HPI. Nursing and ancillary documentation was reviewed. [facility] Past Medical History Medical History Arthritis Cancer of left breast Depression with anxiety Hypertension Left leg DVT (01/2023) Surgical History Surgical History History of cholecystectomy History of laparoscopy For endometriosis. History of lumpectomy of left breast History of vein stripping Family History Family History Other Heart disease Social History Social History Social History: Surrogate medical decision maker: Dex Kenyon, spouse. Code status: Full code. Smoking statu
--- NOTE | 2023-12-06 06:05 | PC.NURSE ---
Lower leg redness near ankles appearing
[2023-12-06 06:06] LABS: Basophils Absolute Auto 0.1 K/mm3 (0.0-0.1); Basophils Percent Auto 1.2 % (0.2-1.2); Eosinophils Absolute Auto 0.1 K/mm3 (0-0.3); Eosinophils Percent Auto 2.1 % (0-4.4); Hematocrit 35.3 % (37.0-47.0); Hemoglobin 10.8 g/dL (12.0-15.0); Immature Granulocyte Absolute 0.01 K/mm3 (0.00-0.031); Immature Granulocyte Percent A 0.2 % (0-0.5); Lymphocytes Absolute Auto 1.79 K/mm3 (0.9-3.2); Lymphocytes Percent Auto 41.8 % (18.3-44.2); Mean Corpuscular HGB Conc 30.6 g/dl (32-36); Mean Corpuscular Hemoglobin 27.6 pg (26-34); Mean Corpuscular Volume 90.1 fl (80-100); Mean Platelet Volume 10.9 fl (7.4-10.4); Monocytes Absolute Auto 0.4 K/mm3 (0.1-0.6); Monocytes Percent Auto 8.2 % (2.6-8.5); Neutrophils Percent Auto 46.5 % (45.5-73.1); Platelet Count Result 224 k/mm3 (150-375); Red Blood Count 3.92 M/mm3 (4.2-5.4); Red Cell Distribution Width 14.4 % (11.5-14.5); White Blood Count 4.3 K/mm3 (4.5-10.0)
[2023-12-06 06:14] LABS: Appearance Urine Cloudy (Clear); Bacteria Urine None Seen /hpf; Bilirubin Urine Negative (Negative); Blood Urine Negative (Negative); Color Urine Yellow (Yellow); Glucose Urine UA Negative (Negative); Ketones Urine Negative (Negative); Leukocyte Esterase Ur Negative LEU/UL (Negative); Nitrate Urine Negative (Negative); Non Pathogenic Casts 0-2; Protein Urine Trace mg/dL (Negative); RBC Urine 0-2 /hpf (0-2); Specific Grav Ur 1.022 (1.001-1.035); Squamous Epithelial Cell Urine Occasional /hpf (Few); Urobilinogen Urine 0.2 mg/dL (<2.0); WBC Urine 0-5 /hpf; pH Urine 5.5 (5.0-9.0)
[2023-12-06 06:20] LABS: Alanine Aminotransferase 14 U/L (6-35); Albumin Level 3.7 g/dL (3.5-5.1); Alkaline Phosphatase 71 U/L (38-126); Anion Gap 7 mmol/L (8-16); Aspartate Amino Transferase 29 U/L (14-36); Bilirubin,Total 0.5 mg/dL (0.2-1.3); Blood Urea Nitrogen 13 mg/dL (7-17); Calcium 8.6 mg/dL (8.4-10.2); Carbon Dioxide 28 mmol/L (22-30); Chloride 105 mmol/L (98-107); Estimated CRCL calculation 68 ml/min; Estimated Glomerular Filt Rate > 60; Glucose 78 mg/dL (65-110); Potassium 3.1 mmol/L (3.4-5.0); Sodium 140 mmol/L (137-145)
[2023-12-06 06:24] LABS: Add Urine Microscopic? YES
[2023-12-06 06:29] LABS: NT Pro B Type Natriuretic Pept 367 pg/mL (19.9-100)
[2023-12-06] MEDS: POTASSIUM CHLORIDE 20 MEQ PACKET (FOR LIQUID) 40 MEQ PO (06:45)
== END 2023-12-06 08:17 | disposition home or self-care (01) ==
PROVIDERS: Emergency Provider Student in an Organized Health Care Education/Training Program; PCP Internal Medicine
DX: R60.0 Localized edema (principal); L98.8 Other specified disorders of the skin and subcutaneous tissue; I10 Essential (primary) hypertension; M19.90 Unspecified osteoarthritis, unspecified site; F41.8 Other specified anxiety disorders; Z85.3 Personal history of malignant neoplasm of breast; Z86.718 Personal history of other venous thrombosis and embolism; Z90.49 Acquired absence of other specified parts of digestive tract
CPT/HCPCS: 36415; 71045; 80053; 81001; 83880; 84443; 85025; 93005; 99283; A9270

== ENCOUNTER 2023-12-17 06:49 | Inpatient (IN) | payer MEDICARE, OTHER, SELFPAY ==
[2023-12-17] VITALS (29 sets, daily range): BP systolic 99–137; BP diastolic 66–95; PULSE 75–91; RESP 13–26; TEMP 36.4–36.8; O2SAT 91–100; BMI 27.2
--- NOTE | 2023-12-17 07:14 | ECG_ITS ---
Measurements Intervals [place] Rate: 78 P: 34 IA: 185 QRS: -14 QRSD: 95 T: 47 QT: 335 QTc: 382 Interpretive Statements SINUS RHYTHM EARLY PRECORDIAL R/S TRANSITION BORDERLINE ECG COMPARED TO ECG 12/06/2023 05:53:10 NO SIGNIFICANT CHANGES Electronically Signed On 12-17-2023 8:25:16 WOOD SHOP TEACHER by Rafy Purdy D.O.
[2023-12-17 07:41] LABS: Basophils Absolute Auto 0.1 K/mm3 (0.0-0.1); Basophils Percent Auto 0.8 % (0.2-1.2); Eosinophils Percent Auto 0.5 % (0-4.4); Hemoglobin 11.3 g/dL (12.0-15.0); Immature Granulocyte Absolute 0.02 K/mm3 (0.00-0.031); Immature Granulocyte Percent A 0.3 % (0-0.5); Lymphocytes Percent Auto 21.6 % (18.3-44.2); Mean Corpuscular HGB Conc 30.5 g/dl (32-36); Mean Corpuscular Hemoglobin 27.2 pg (26-34); Mean Corpuscular Volume 88.9 fl (80-100); Monocytes Absolute Auto 0.7 K/mm3 (0.1-0.6); Monocytes Percent Auto 10.5 % (2.6-8.5); Neutrophils Absolute Auto 4.3 K/mm3 (1.3-6.7); Neutrophils Percent Auto 66.3 % (45.5-73.1); Platelet Count Result 255 k/mm3 (150-375); Red Blood Count 4.16 M/mm3 (4.2-5.4); Red Cell Distribution Width 13.6 % (11.5-14.5); White Blood Count 6.5 K/mm3 (4.5-10.0)
[2023-12-17 08:04] LABS: Alanine Aminotransferase 15 U/L (6-35); Albumin Level 4.2 g/dL (3.5-5.1); Alkaline Phosphatase 73 U/L (38-126); Anion Gap 9 mmol/L (8-16); Aspartate Amino Transferase 31 U/L (14-36); Bilirubin,Total 0.7 mg/dL (0.2-1.3); Blood Urea Nitrogen 40 mg/dL (7-17); Calcium 8.9 mg/dL (8.4-10.2); Carbon Dioxide 39 mmol/L (22-30); Chloride 84 mmol/L (98-107); Estimated CRCL calculation 31 ml/min; Estimated Glomerular Filt Rate 40; Glucose 102 mg/dL (65-110); Potassium 2.4 mmol/L (3.4-5.0); Sodium 132 mmol/L (137-145)
[2023-12-17] MEDS: POTASSIUM CHLORIDE INJ 40 MEQ in SODIUM CHLORIDE 0.9% IV 500 ML 130 MEQ IVPB (08:28)
[2023-12-17] MEDS: POTASSIUM CHLORIDE 20 MEQ PACKET (FOR LIQUID) 40 MEQ PO (08:35)
--- NOTE | 2023-12-17 09:20 | ED.GENADULT ---
HPI - General Adult General Chief complaint: Unspecified Stated complaint: dizziness, racing heart, nausea Time Seen by Provider: 12/17/23 09:06 History of Present Illness HPI narrative: Patient is a 73-year-old female who presents to the emergency department this morning with multiple complaints. Patient states that she has been having some dizziness which she describes as more of a lightheadedness rather than room spinning sensation. Patient states that she has also been feeling nauseous and has noticed her heart rate has been racing. She admits that she was recently started on 2 new medications on Saturday, one of them being a water pill and she is unsure if her symptoms are due to that. Patient checked her blood pressure at home after starting to have the symptoms and noted that her systolic blood pressure was 80. Symptoms started approximately 2 days ago. Patient denies any additional symptoms including chest pain, shortness of breath, nausea, vomiting, abdominal pain, dysuria, hematuria, constipation, diarrhea, melena, hematochezia, fevers or chills. Patient also denies any headaches, room spinning dizziness sensation, blurry visions, focal weakness, numbness and or tingling. There are no other modifying, alleviating, or precipitating factors at this time. Related Data Home Medications Medication Instructions Recorded Confirmed alprazolam 0.5 mg tablet 0.5 mg PO QID 10/28/20 12/13/23 carvedilol 12.5 mg tablet 12.5 mg PO BID 10/28/20 12/13/23 duloxetine 30 mg capsule,delayed 30 mg PO DAILY 10/28/20 12/13/23 release esomeprazole magnesium 40 mg 40 mg PO BID 10/28/20 12/13/23 capsule,delayed release sumatriptan succinate 100 mg tablet 100 mg PO DAILY PRN Migraine 10/28/20 12/13/23 Headache Shanice-D 24 Hour 1 pill BYMOUTH DAILY 07/16/23 12/13/23 albuterol sulfate 90 mcg/actuation 2 puff inhalation Q6H PRN 07/16/23 12/13/23 aerosol inhaler (Ventolin HFA) Shortness Of Breath dextromethorphan-guaifenesin 30 1 tablet PO Q12H PRN Cough 07/16/23 12/13/23 mg-600 mg tablet extended hr (Mucinex DM) fluticasone propionate 50 2 spray intranasal DAILY 07/16/23 12/13/23 mcg/actuation nasal spray,suspension furosemide 40 mg tablet 40 mg PO DAILY 07/16/23 12/13/23 methocarbamol 750 mg tablet 750 mg PO TID 07/16/23 12/13/23 pregabalin 75 mg capsule 150 mg PO HS 07/16/23 12/13/23 aspirin 81 mg capsule 81 mg PO DAILY 12/13/23 12/13/23 doxycycline hyclate 100 mg tablet 100 mg PO BID 12/13/23 12/13/23 ergocalciferol (vitamin D2) 1,250 1,250 mcg PO WEEKLY 12/13/23 12/13/23 mcg (50,000 unit) capsule (Vitamin D2) ibuprofen 800 mg tablet 800 mg PO TID 12/13/23 12/13/23 methylprednisolone 4 mg tablets in See Rx Instructions .Route .COMPLEX 12/13/23 12/13/23 a dose pack metolazone 2.5 mg tablet 2.5 mg PO DAILY 12/13/23 12/13/23 potassium chloride 20 mEq 20 meq PO DAILY 12/13/23 12/13/23 tablet,extended release silver sulfadiazine 1 applic topical BID 12/13/23 12/13/23 Allergies Allergy/AdvReac Type Severity Reaction Status Date / Time cefdinir Allergy Mild Abdominal Verified 12/13/23 13:42 Pain meperidine Allergy Unknown Nausea and Verified 10/28/20 05:36 Vomiting naproxen [From Naprosyn] Allergy Unknown Unknown Verified 12/13/23 13:42 Review of Systems Review of Systems: All systems are reviewed and are negative unless stated otherwise in the HPI. [facility] Past Medical History Medical History Arthritis Cancer of left breast Depression with anxiety Hypertension Left leg DVT (01/2023) Surgical History Surgical History History of cholecystectomy History of laparoscopy For endometriosis. History of lumpectomy of left breast History of vein stripping Family History Family History Other Heart disease Social Histo
--- NOTE | 2023-12-17 09:20 | PC.NURSE ---
Sangita with wound care to assess pt wounds to bilateral lower legs. Sangita states wounds are improving & she gave pt wound care instructions for home, if pt admitted wound care to follow as IP
[2023-12-17 09:29] LABS: Magnesium 1.9 mg/dL (1.6-2.3)
--- NOTE | 2023-12-17 10:34 | PCWOUND ---
WOCN NOTE patient missed scheduled outpatient wound care appointment due to ER admission. WOCN assessed legs in ER. wounds on bilateral lower legs have improved. no s/s of infection present. instructed patient and spouse to continue home wound care and call wound center to schedule next appointment after discharge.
--- NOTE | 2023-12-17 12:38 | PC.NURSE ---
patient received IV and PO K+. provider aware and new order for repeat BMP received. patient aware of plan of care
[2023-12-17 13:03] LABS: Blood Urea Nitrogen 33 mg/dL (7-17); Calcium 8.6 mg/dL (8.4-10.2); Carbon Dioxide > 40 mmol/L (22-30); Chloride 90 mmol/L (98-107); Estimated CRCL calculation 40 ml/min; Estimated Glomerular Filt Rate 55; Glucose 120 mg/dL (65-110); Potassium 2.9 mmol/L (3.4-5.0); Sodium 134 mmol/L (137-145)
--- NOTE | 2023-12-17 16:21 | PC.NURSE ---
This patient, Lucie Kenyon, was admitted to Virtual Bed 3rd Floor-1. Patient/family oriented to hospital policies and general routines including ID bracelet, bed and alarms, visiting hours, pain management, procedures, bathroom and other care routines, personal items, smoking policy, room service/diet, and visiting hours. Information on how to activate the Rapid Response Team has been discussed. Patient/Family are encouraged to report perceived risks to care and to ask questions if they do not understand what they are told or what they should do.
--- NOTE | 2023-12-17 17:05 | PM.IMHP ---
H&P: HPI History of Present Illness Date/Time: 12/17/23 18:05 Chief Complaint: Multiple complaints. Narrative: This is a 73-year-old female with history of DVT, diastolic dysfunction, hypertension, depression, and left breast cancer who presented to the emergency department via private vehicle from home for evaluation of multiple complaints. The patient provides the following history. She has been feeling lightheaded and dizzy intermittently over the last couple of days with occasional nausea and racing heart. Last week she was started on 2 new medications, 1 of which was metolazone for lower extremity edema. Since then she has noticed that her blood pressure has been running lower than usual and today was reportedly in the 80s systolic. Urine output has dropped off a bit in her urine is more concentrated than usual. With further questioning she reports that she was previously on furosemide for her leg swelling but stopped taking it as she did not think it was helpful. It should be noted that she had venous Doppler ultrasounds done last Saturday at [facility] which were negative for DVT. She denies headache, vertigo, auditory and visual changes, focal weakness, paresthesias, facial droop, difficulty speaking and swallowing, chest and pleuritic pain, shortness of breath, vomiting, diarrhea, and dysuria. Blood pressures were at the low end of normal on arrival. Initial labs were significant for a sodium of 132, potassium 2.4, chloride 84, carbon dioxide 39, BUN 40, creatinine 1.30. Potassium was replaced and she was hydrated however repeat labs showed that her potassium was still low and she is being admitted for replacement and hydration. Review of Systems Review of Systems: Twelve systems were reviewed and are negative except for as per HPI. [facility] Past Medical History Medical History (Updated 12/18/23 @ 00:59 by Sylvia Lozano PA-C) Arthritis Cancer of left breast Depression with anxiety Diastolic dysfunction Hypertension Left leg DVT (01/2023) Surgical History Surgical History History of cholecystectomy History of laparoscopy For endometriosis. History of lumpectomy of left breast History of vein stripping Family History Family History Mother Heart disease Grandparent Heart disease Social History Social History (Reviewed 01/16/24 @ 17:09 by KAMERON Caicedo Social History: Surrogate medical decision maker: Dex Kenyon, spouse. Code status: Full code. Smoking status: Never smoker Second hand tobacco smoke exposure: No Alcohol intake: never Substance use: never Do You Feel Safe in your Home?: Yes Lack of Transportation: No Lack of Food: Never True Current Housing: I Have Housing Concerned About Future Housing: No Difficulty Paying Gas/Electric Bills: No Difficulty Paying for Meds: No Currently Unemployed: No Education: High School Diploma/GED Difficulty w/ Childcare or Family Care: No Additional living arrangements comments: Lives with spouse in [place]. Additional occupation/education comments: Retired. Spiritual care concerns: No Meds Home Medications and Allergies Home Medications Medication Instructions Recorded Confirmed Type alprazolam 0.5 mg tablet 0.5 mg PO QID PRN Anxiety 10/28/20 12/17/23 History carvedilol 12.5 mg tablet 12.5 mg PO BID 10/28/20 12/17/23 History duloxetine 30 mg capsule,delayed 30 mg PO DAILY 10/28/20 12/17/23 History release esomeprazole magnesium 40 mg 40 mg PO DAILY 10/28/20 12/17/23 History capsule,delayed release sumatriptan succinate 100 mg tablet 100 mg PO DAILY PRN Migraine 10/28/20 12/17/23 History Headache dextromethorphan-guaifenesin 30 1 tablet PO Q12H PRN Cough 07/16/23 12/17/23 History mg-600 mg tablet extended [id number] hr (Mucinex DM) fluticasone propionate 50 2 spray intranasal
[2023-12-17 18:06] LABS: Blood Urea Nitrogen 30 mg/dL (7-17); Calcium 8.9 mg/dL (8.4-10.2); Carbon Dioxide > 40 mmol/L (22-30); Chloride 90 mmol/L (98-107); Estimated CRCL calculation 44 ml/min; Estimated Glomerular Filt Rate > 60; Glucose 97 mg/dL (65-110); Potassium 3.1 mmol/L (3.4-5.0); Sodium 133 mmol/L (137-145)
[2023-12-17] MEDS: POTASSIUM CHLORIDE 20 MEQ ER TABLET 40 MEQ PO (23:53)
[2023-12-17] MEDS: ALPRAZolam (*CRX) 0.5 MG TABLET PO (23:54)
[2023-12-17] MEDS: PREGABALIN (*CRX) 75 MG CAPSULE PO (23:54)
[2023-12-17] MEDS: carvediloL 12.5 MG TABLET PO (23:54)
[2023-12-17] MEDS: SODIUM CHLORIDE 0.9% IV 1,000 ML 100 ML IV CONT (23:55)
[2023-12-18] VITALS (14 sets, daily range): BP systolic 98–119; BP diastolic 61–80; PULSE 70–88; RESP 16–18; TEMP 36.2–36.6; O2SAT 95–99
[2023-12-18 07:00] LABS: Anion Gap 3 mmol/L (8-16); Blood Urea Nitrogen 25 mg/dL (7-17); Calcium 8.9 mg/dL (8.4-10.2); Carbon Dioxide 32 mmol/L (22-30); Chloride 99 mmol/L (98-107); Estimated CRCL calculation 55 ml/min; Estimated Glomerular Filt Rate > 60; Glucose 83 mg/dL (65-110); Magnesium 2.2 mg/dL (1.6-2.3); Potassium 3.3 mmol/L (3.4-5.0); Sodium 134 mmol/L (137-145)
[2023-12-18] MEDS: POTASSIUM CHLORIDE 20 MEQ ER TABLET 40 MEQ PO (08:28)
[2023-12-18] MEDS: PANTOPRAZOLE 40 MG TABLET PO (08:29)
[2023-12-18] MEDS: ASPIRIN 81 MG ENTERIC TABLET PO (08:29)
[2023-12-18] MEDS: carvediloL 12.5 MG TABLET PO ×2 (08:29→20:19)
[2023-12-18] MEDS: DULoxetine HCL 30 MG CAPSULE.DR PO (08:29)
[2023-12-18] MEDS: ENOXAPARIN 40 MG/0.4 ML SYRINGE SUB-Q (08:30)
--- NOTE | 2023-12-18 12:15 | PM.IMPN ---
Progress Note: A&P Assessment and Plan (1) Dehydration: Code(s): E86.0 - Dehydration Status: Acute Assessment and Plan: She was placed on metolazone last week for increasing lower extremity edema and it looks like she is over diuresed. Creatinine is elevated from baseline and she has several electrolyte abnormalities. She will be judiciously hydrated with close monitoring of volume status. Continue to monitor BMP. (2) Hypokalemia: Code(s): E87.6 - Hypokalemia Status: Acute Assessment and Plan: 2.4 on admission. Replenish as necessary. (3) Generalized weakness: Code(s): R53.1 - Weakness Status: Acute Assessment and Plan: Likely due to dehydration. (4) Hypertension: Qualifiers: Hypertension type: primary hypertension Qualified Code(s): I10 - Essential (primary) hypertension Code(s): I10 - Essential (primary) hypertension Status: Acute Assessment and Plan: Stable. Continue home medications. (5) Diastolic dysfunction: Code(s): I51.89 - Other ill-defined heart diseases Status: Acute Assessment and Plan: Stable. (6) Lower extremity edema: Code(s): R60.0 - Localized edema Status: Acute Assessment and Plan: Wound care seeing. Stable. No acute changes. Subjective Date/time seen: 12/18/23 12:15 Interval history: patient states that she is feeling better although not 100% herself. She still having nausea although able to tolerate her food. Discussed plan of care with the patient and if she continues to do well will likely discharge her tomorrow. Will not send patient back on her metolazone but preferred a follow-up with her primary care provider regarding other possible medication she could take. Recheck labs in the morning and likely discharge tomorrow. Exam Narrative: GENERAL: Comfortable, no acute distress HENMT: moist mucous membranes EYES: EOM intact b/l NECK: no lymphadenopathy RESPIRATORY: clear to auscultation CARDIO: RRR GI: soft, nontender, bowel sounds present SKIN: no rashes EXTREMITIES: bilateral lower extremities wrapped although obviously edematous Objective Data Vital Signs Vital Signs: Vital Signs - 24 hr 12/17/23 12:31 12/17/23 13:33 12/17/23 15:24 Temperature Pulse Rate 85 86 91 Respiratory Rate 20 25 H 22 H Blood Pressure Pulse Oximetry 96 96 Oxygen Delivery 01/16/24 15:26 12/17/23 15:38 12/17/23 15:45 Temperature Pulse Rate 86 81 81 Respiratory Rate 21 H 20 21 H Blood Pressure 125/85 116/95 H Pulse Oximetry Oxygen Delivery 12/17/23 16:44 12/17/23 20:07 12/17/23 20:00 Temperature 98.2 F 97.6 F Pulse Rate 81 83 82 Respiratory Rate 18 18 Blood Pressure 122/80 122/76 Pulse Oximetry 100 96 Oxygen Delivery 12/17/23 20:00 12/17/23 23:54 12/18/23 00:00 Temperature Pulse Rate 80 82 Respiratory Rate Blood Pressure Pulse Oximetry Oxygen Delivery Room Air 12/18/23 04:00 12/18/23 05:16 12/18/23 05:19 Temperature 97.8 F Pulse Rate 70 75 76 Respiratory Rate 16 Blood Pressure 119/62 98/69 L Pulse Oximetry 95 Oxygen Delivery 12/18/23 08:29 12/18/23 08:36 Temperature Pulse Rate 81 Respiratory Rate Blood Pressure Pulse Oximetry Oxygen Delivery Room Air Intake/Output Intake/Output: Intake & Output 12/15/23 12/16/23 12/17/23 12/18/23 23:59 23:59 23:59 23:59 Intake Total 1260 315 Output Total 1500 Balance 1260 -1185 Meds/Results Medications: Active Medications Generic Name Dose Route Start Last Admin Trade Name Freq PRN Reason Stop Dose Admin Acetaminophen 650 mg 12/17/23 23:22 Acetaminophen 325 Mg Tablet PO Q6H PRN Mild Pain (1-3) or Fever Alprazolam 0.5 mg 12/17/23 23:20 12/17/23 23:54 Alprazolam (*Crx) 0.5 Mg Tablet PO 0.5 mg QID PRN Administration
[2023-12-18] MEDS: MUPIROCIN 2% OINT 22 GM TUBE 1 APPLIC TOPICAL (12:30)
[2023-12-18] MEDS: SODIUM CHLORIDE 0.9% IV 1,000 ML 75 ML IV CONT ×2 (14:04→22:01)
[2023-12-18] MEDS: ALPRAZolam (*CRX) 0.5 MG TABLET PO ×2 (14:06→20:19)
[2023-12-18] MEDS: ACETAMINOPHEN 325 MG TABLET 650 MG PO (14:06)
[2023-12-18] MEDS: PREGABALIN (*CRX) 75 MG CAPSULE PO (20:19)
[2023-12-19] VITALS: PULSE 80
[2023-12-19 04:00] VITALS: PULSE 73
[2023-12-19 05:34] VITALS: BP 115/65; PULSE 69; RESP 16; TEMP 36.4; O2SAT 96
[2023-12-19 06:13] LABS: Hematocrit 32.6 % (37.0-47.0); Hemoglobin 9.8 g/dL (12.0-15.0); Mean Corpuscular HGB Conc 30.1 g/dl (32-36); Mean Corpuscular Hemoglobin 27.4 pg (26-34); Mean Corpuscular Volume 91.1 fl (80-100); Mean Platelet Volume 11.5 fl (7.4-10.4); Platelet Count Result 234 k/mm3 (150-375); Red Blood Count 3.58 M/mm3 (4.2-5.4); Red Cell Distribution Width 13.8 % (11.5-14.5); White Blood Count 4.7 K/mm3 (4.5-10.0)
[2023-12-19 06:30] LABS: Alanine Aminotransferase 11 U/L (6-35); Albumin Level 3.3 g/dL (3.5-5.1); Alkaline Phosphatase 57 U/L (38-126); Anion Gap 1 mmol/L (8-16); Aspartate Amino Transferase 29 U/L (14-36); Bilirubin,Total 0.5 mg/dL (0.2-1.3); Blood Urea Nitrogen 15 mg/dL (7-17); Calcium 8.5 mg/dL (8.4-10.2); Carbon Dioxide 34 mmol/L (22-30); Chloride 104 mmol/L (98-107); Estimated CRCL calculation 66 ml/min; Estimated Glomerular Filt Rate > 60; Glucose 84 mg/dL (65-110); Sodium 139 mmol/L (137-145)
[2023-12-19 08:04] VITALS: PULSE 81
[2023-12-19] MEDS: ENOXAPARIN 40 MG/0.4 ML SYRINGE SUB-Q (08:16)
[2023-12-19 08:17] VITALS: PULSE 76
[2023-12-19] MEDS: DULoxetine HCL 30 MG CAPSULE.DR PO (08:17)
[2023-12-19] MEDS: PANTOPRAZOLE 40 MG TABLET PO (08:17)
[2023-12-19] MEDS: carvediloL 12.5 MG TABLET PO (08:17)
[2023-12-19] MEDS: ASPIRIN 81 MG ENTERIC TABLET PO (08:17)
[2023-12-19] MEDS: MUPIROCIN 2% OINT 22 GM TUBE 1 APPLIC TOPICAL (10:02)
[2023-12-19] MEDS: POTASSIUM CHLORIDE 20 MEQ ER TABLET 60 MEQ PO (10:10)
--- NOTE | 2023-12-19 11:54 | PM.DS ---
DS: Admitting Diagnosis Discharge Date 12/19/23 Admitting Diagnosis Abnormal electrolytes DS: Discharge Diagnosis Discharge Diagnosis (1) Dehydration: Code(s): E86.0 - Dehydration Status: Acute (2) Hypokalemia: Code(s): E87.6 - Hypokalemia Status: Acute (3) Generalized weakness: Code(s): R53.1 - Weakness Status: Acute (4) Hypertension: Qualifiers: Hypertension type: primary hypertension Qualified Code(s): I10 - Essential (primary) hypertension Code(s): I10 - Essential (primary) hypertension Status: Acute (5) Diastolic dysfunction: Code(s): I51.89 - Other ill-defined heart diseases Status: Acute (6) Lower extremity edema: Code(s): R60.0 - Localized edema Status: Acute DS: Summary Hospital Course Hospital Course: This is a 73-year-old female with a past medical history of DVT, diastolic dysfunction, hypertension, depression and left breast cancer the presented to the ED on 12/17/2023 due to lightheadedness, dizziness, nausea and racing heart. patient had decreased urine output and had recently been started on new medication, metolazone, for her edema/heart failure. She was found to have a sodium of 132, potassium 2.4, chloride of 84, carbon dioxide 39, BUN 40, creatinine 1.3. Patient was started on IV fluids and potassium replacement. Patient's symptoms were likely due to the metolazone causing acute dehydration. patient's symptoms and labs improved with IV fluids. Will discharge patient with a follow-up with her PCP and follow-up labs. Discontinue metolazone. Her labs and vital signs are stable and she is medically clear for discharge at this time. Time Spent with Patient Time attestation: Total time spent providing and/or coordinating discharge services: Exam Narrative: GENERAL: Comfortable, no acute distress HENMT: moist mucous membranes EYES: EOM intact b/l NECK: no lymphadenopathy RESPIRATORY: clear to auscultation CARDIO: RRR GI: soft, nontender, bowel sounds present SKIN: no rashes EXTREMITIES: bilateral lower extremities wrapped although obviously edematous DS: Data Data Completed and Pending Labs on day of discharge: Labs from last 24 hours 12/19/23 05:34 WBC 4.7 RBC 3.58 L Hgb 9.8 L Hct 32.6 L MCV 91.1 MCH 27.4 MCHC 30.1 L RDW 13.8 Plt Count 234 MPV 11.5 H Sodium 139 Potassium 3.0 L Chloride 104 Carbon Dioxide 34 H Anion Gap 1 L BUN 15 D Creatinine 0.60 L Estim Creat Clear Calc 66 Estimated GFR > 60 Glucose 84 Calcium 8.5 Total Bilirubin 0.5 AST 29 ALT 11 Alkaline Phosphatase 57 Total Protein 6.0 L Albumin 3.3 L Discharge Plan Discharge Attending physician on discharge: Khang Arreola Discharging Clinician: Kimberly Nieves Patient Disposition: Home, Self-Care Activity: as tolerated Diet: heart healthy Discharge Instructions: Repeat labs in approximately 5 days. Have labs completed prior to PCP appointment. Discontinue metolazone. Discharge disposition: Take medications as prescribed Monitor blood pressures Avoid social areas, you wear a mask when in social settings Encouraged to continue with yearly vaccinations Return to the emergency department if he developed sudden shortness of breath, chest pain, nausea, vomiting, upset stomach or intractable diarrhea Return to the emergency department if you develop fever greater than 100.4 Follow-up with the primary care physician within 1-2 weeks Thank you for [facility] for your healthcare needs Patient Instructions: Antibiotic Form Stand Alone Forms: General Discharge Information Follow-up/Referrals: Oliver,Ned Mendiola MD [Primary Care Provider] - Discharge Medications: Continued carvedilol 12.5 mg tablet 12.5 mg PO BID Hold Instructions: Hold until seen by primary or cardiology sumatriptan succinate 100 mg tablet 100 mg PO
[2023-12-19 12:05] VITALS: PULSE 78
[2023-12-19 13:09] LABS: Potassium 4.1 mmol/L (3.4-5.0)
[2023-12-19] MEDS: ACETAMINOPHEN 325 MG TABLET 650 MG PO (13:39)
[2023-12-19] MEDS: ALPRAZolam (*CRX) 0.5 MG TABLET PO (13:39)
== END 2023-12-19 15:50 | disposition home or self-care (01) | DRG 641 ==
LOC: ANHED 13:44 → ANH3MEDSUR 15:31 → ANH3MED 16:31
PROVIDERS: Internal Medicine Critical Care Medicine; Physician Assistant; Admitting Provider Student in an Organized Health Care Education/Training Program; Emergency Provider Emergency Medicine; PCP Internal Medicine; Visit Provider Student in an Organized Health Care Education/Training Program
DX: E86.0 Dehydration (principal); E87.6 Hypokalemia; T50.2X5A Adverse effect of carbonic-anhydrase inhibitors, benzothiadiazides and other diuretics, initial encounter; F41.8 Other specified anxiety disorders; I11.9 Hypertensive heart disease without heart failure; R60.0 Localized edema; Z79.82 Long term (current) use of aspirin; Z85.3 Personal history of malignant neoplasm of breast; Z90.49 Acquired absence of other specified parts of digestive tract; Z86.718 Personal history of other venous thrombosis and embolism
CPT/HCPCS: 36415; 80048; 80053; 83735; 84132; 85025; 85027; 93005; 96365; 96366; 99285; A9270; J1650; J3480; J7030; J7040

== ENCOUNTER 2024-02-06 07:38 | Outpatient (RCR) | payer MEDICARE, OTHER, SELFPAY ==
[2023-12-13 13:05] VITALS: BMI 29.3
--- NOTE | 2023-12-17 08:55 | PCWOUND ---
WOCN NOTE Patient spouse called and cancelled appointment today. patient is in the ER.
--- NOTE | 2023-12-17 10:40 | PCWOUND ---
WOCN NOTE patient assessed in the ER. legs are improving. no s/s of infection present. patient to continue current care and call wound center for next appointment after discharge.
== END 2024-03-12 23:59 | disposition home or self-care (01) ==
LOC: ANHWOC 07:38
PROVIDERS: PCP Internal Medicine; Visit Provider Internal Medicine
DX: S81.801D Unspecified open wound, right lower leg, subsequent encounter (principal)
CPT/HCPCS: 29581; 99212; 99215; A9270; G0463